=== PATIENT | male | born 1985 | race Hispanic/Latino ===

== ENCOUNTER 2017-09-21 10:28 | Emergency (ER) | payer SELFPAY ==
[2017-09-21] MEDS ORDERED: Lidocaine Viscous Sol 2% 15 ml UD Cup ONE (10:53)
[2017-09-21] MEDS ORDERED: Mag-Al 1200 mg/1200 mg/30 ML UDCUP ONE (10:53)
[2017-09-21] MEDS ORDERED: Pantoprazole 40 MG VIAL ONE (10:53)
[2017-09-21 11:07] LABS: #Basophils 0.1 thou/uL (0.0-0.2); #Eosinphils 0.1 thou/uL (0.0-0.7); #Lymphocytes 2.2 thou/uL (1.20-3.40); #Monocytes 0.4 thou/uL (0.11-0.59); #Neutrophils 3.5 thou/uL (1.40-6.50); %Basophils 1.4 % (0.0-1.0); %Eosinophils 2.3 % (0.0-10.0); %Lymphocytes 34.2 % (21.0-51.0); %Monocytes 6.8 % (0.0-10.0); Hematocrit 49.7 % (42.0-52.0); Mean Platelet Volume 7.8 fL (7.4-10.4); Red Blood Cell (RBC) Count 5.25 mill/uL (4.70-6.10); White Blood Cell (WBC) Count 6.3 thou/uL (4.8-10.8)
[2017-09-21 11:31] LABS: ALT (SGPT) 72 U/L (8-55); AST (SGOT) 28 U/L (5-34); Alkaline Phosphatase 79 U/L (40-150); Anion Gap 12 mmol/L (10-20); BUN (Urea Nitrogen) 12 mg/dL (8.9-20.6); Bilirubin, Total 0.6 mg/dL (0.2-1.2); CK (CPK) 197 U/L (30-200); Calc. Creatinine Clearance 0 mL/min (70-130); Calcium 9.6 mg/dL (7.8-10.44); Carbon Dioxide 31 mmol/L (22-29); Chloride 101 mmol/L (98-107); Estimated GFR-MDRD 82; Globulin 3.8 g/dL (2.4-3.5); Lipase 21 U/L (8-78); Protein, Total 8.1 g/dL (6.0-8.3)
[2017-09-21 11:33] LABS: Troponin I Less than 0.010 ng/mL (< 0.028)
== END 2017-09-21 14:15 | disposition home or self-care (01) ==
LOC: ERS 10:28
DX: K29.70 Gastritis, unspecified, without bleeding (principal)
CPT/HCPCS: 80053; 82550; 82553; 83690; 84484; 85025; 93005; 94760; 96374; C9113

== ENCOUNTER 2020-03-01 16:52 | Emergency (ER) | payer OTHER, SELFPAY ==
[2020-03-02 12:07] LABS: SARS-CoV-2 MS2 Positive; SARS-CoV-2 N Gene Negative; SARS-CoV-2 S Gene Negative; SARS-CoV-2 orf1ab Negative
== END 2020-03-01 17:59 | disposition home or self-care (01) ==
LOC: ERS 16:52
DX: J06.9 Acute upper respiratory infection, unspecified (principal); Z20.828 Contact with and (suspected) exposure to other viral communicable diseases
CPT/HCPCS: 87635; 99283; U0003

== ENCOUNTER 2022-06-11 10:41 | Emergency (ER) | payer OTHER, BC | END 2022-06-11 13:20 | disposition home or self-care (01) | LOC: ERS 10:41 | DX: S40.212A Abrasion of left shoulder, initial encounter (principal); M54.2 Cervicalgia; V43.52XA Car driver injured in collision with other type car in traffic accident, initial encounter | CPT/HCPCS: 70450; 72125 ==

== ENCOUNTER 2022-11-29 01:05 | Emergency (ER) | payer BC, OTHER ==
[2022-11-29] MEDS ORDERED: Ondansetron PF 4 MG/2 ML Vial ONE (01:39)
[2022-11-29] MEDS ORDERED: Morphine 4 MG/ML VIAL ONE ×2 (01:39→02:40)
[2022-11-29 01:57] LABS: Hemoglobin 16.2 g/dL (14.0-18.0); Mean Corpuscular HGB CONC 35.4 g/dL (32.0-36.0); Mean Corpuscular Hemoglobin 32.9 pg (27.0-31.0); Mean Platelet Volume 8.3 fL (7.4-10.4); Platelet Count 185 10x3/uL (130-400); RBC Distribution Width 11.7 % (11.5-14.5); Red Blood Cell (RBC) Count 4.91 mill/uL (4.70-6.10); White Blood Cell (WBC) Count 6.9 10x3/uL (4.8-10.8)
[2022-11-29 02:12] LABS: ALT (SGPT) 50 U/L (8-55); AST (SGOT) 29 U/L (5-34); Albumin 4.1 g/dL (3.5-5.0); Alkaline Phosphatase 62 U/L (40-110); Anion Gap 13 mmol/L (10-20); BUN (Urea Nitrogen) 31 mg/dL (8.9-20.6); Bilirubin, Total 0.5 mg/dL (0.2-1.2); Calc. Creatinine Clearance 0 mL/min (70-130); Calcium 9.8 mg/dL (7.8-10.44); Carbon Dioxide 29 mmol/L (22-29); Chloride 99 mmol/L (98-107); Estimated GFR 68; Globulin 3.6 g/dL (2.4-3.5); Glucose 125 mg/dL (70-105); Lipase 30 U/L (8-78); Potassium 3.7 mmol/L (3.5-5.1); Protein, Total 7.7 g/dL (6.0-8.3); Sodium 137 mmol/L (136-145)
[2022-11-29 02:18] LABS: Bacteria/HPF None Seen HPF (None Seen); Bilirubin Negative (Negative); Blood, Urine 1+ (Negative); Clarity Clear (Clear); Glucose, Urine (Dipstick) Normal (Negative); Ketone, Urine Negative (Negative); Leukocyte Negative Leu/uL (Negative); Nitrite Negative (Negative); Protein, Urine (Dipstick) Negative (Neg-Trace); RBC/HPF 21-50 HPF (0-3); Specific Gravity, Urine 1.025 (1.002-1.036); Squamous Epithelial None Seen HPF (0-3); Urobilinogen Normal mg/dL (Less than 2); WBC/HPF 0-3 HPF (0-3); pH, Urine 6.5 (5.0-9.0)
[2022-11-29 02:23] LABS: Eosinophils 4 % (0-10); Lymphocytes 59 % (21-51); MDiff Complete? YES; Monocytes 4 % (0-10); Neutrophil 30 % (42-75); Reactive Lymphocytes 2 % (0-10)
[2022-11-29] MEDS ORDERED: Ketorolac Tromethamine 30 MG/ML VIAL ONE (02:40)
[2022-11-29] MEDS ORDERED: Iopamidol-370 76% 500 ML 1 ML ONE (15:31)
== END 2022-11-29 06:28 | disposition home or self-care (01) ==
LOC: ERS 01:05
DX: N13.2 Hydronephrosis with renal and ureteral calculous obstruction (principal); E78.5 Hyperlipidemia, unspecified; E78.00 Pure hypercholesterolemia, unspecified
CPT/HCPCS: 74177; 76870; 80053; 81003; 81015; 83690; 85025; 93976; 96374; 96375; 96376; J1885; J2270; J2405